=== PATIENT | male | born 1960 | race Caucasian/White ===

== ENCOUNTER 2016-10-27 | Emergency (ER) | payer MEDICAID ==
[~2016-10-27] MED LIST: Apixaban Base PO; FURO20TA PO; LIS5T PO
[2016-10-27 01:03] LABS: Albumin 3.5 g/dL (3.4-5.0); BUN/Creatinine Ratio 14.6; Calcium 9.2 mg/dL (8.5-10.1); Magnesium 2.2 mg/dL (1.6-2.6); Potassium 4.3 mmol/L (3.5-5.1)
[2016-10-27 01:10] LABS: Bilirubin, Total 1.7 mg/dL (0.2-1.0); Total Protein 7.2 g/dL (6.4-8.2)
[2016-10-27 01:26] LABS: Basophils # (auto) 0 uL; Basophils % (auto) 0.3 % (0.0-2.0); Eosinophils # (auto) 0.2 uL; Eosinophils % (auto) 1.4 % (0.0-7.0); Hematocrit 44.5 % (41.0-53.0); Hemoglobin 14.7 g/dL (13.5-17.5); Lymphocytes # (auto) 1.9 uL; Lymphocytes % (auto) 18.2 % (10.0-50.0); Mean Corpuscular Hemoglobin 31.4 pg (28.0-32.0); Mean Corpuscular Hgb Conc. 33.1 g/dL (32.0-36.0); Mean Corpuscular Volume 94.7 fL (80.0-100.0); Mean Platelet Volume 9.7 fL (7.4-10.4); Monocytes % (auto) 9.5 % (0.0-12.0); Neutrophils # (auto) 7.4 uL; Neutrophils % (auto) 70.6 % (37.0-80.0); Platelet Count (auto) 260 10^3/uL (140-450); Red Cell Distribution Width 13.6 % (11.6-16.0); White Blood Cell 10.5 10^3/uL (4.4-10.8)
== END 2016-10-27 08:46 | disposition left against medical advice (07) ==
LOC: ER
DX: R10.9 Unspecified abdominal pain (principal); Z53.21 Procedure and treatment not carried out due to patient leaving prior to being seen by health care provider
CPT/HCPCS: 36415; 74176; 80053; 82150; 83690; 83735; 84484; 85025; 93005

== ENCOUNTER 2016-10-28 16:55 | Emergency (ER) | payer MEDICAID ==
[~2016-10-28] VITALS: Ht 175.3 cm; Wt 70.3 kg
[2016-10-28 17:15] VITALS: BP 123/89
[2016-10-28 17:46] LABS: Basophils # (auto) 0.1 uL; Basophils % (auto) 0.9 % (0.0-2.0); Eosinophils # (auto) 0.2 uL; Eosinophils % (auto) 2.5 % (0.0-7.0); Hematocrit 43.3 % (41.0-53.0); Hemoglobin 14.6 g/dL (13.5-17.5); Lymphocytes # (auto) 1.7 uL; Lymphocytes % (auto) 17.4 % (10.0-50.0); Mean Corpuscular Hemoglobin 31.8 pg (28.0-32.0); Mean Corpuscular Hgb Conc. 33.8 g/dL (32.0-36.0); Mean Platelet Volume 9.3 fL (7.4-10.4); Monocytes # (auto) 0.8 uL; Monocytes % (auto) 8.6 % (0.0-12.0); Neutrophils # (auto) 6.8 uL; Neutrophils % (auto) 70.6 % (37.0-80.0); Platelet Count (auto) 277 10^3/uL (140-450); Red Cell Distribution Width 13.9 % (11.6-16.0); White Blood Cell 9.6 10^3/uL (4.4-10.8)
[2016-10-28 18:02] LABS: Albumin 3.2 g/dL (3.4-5.0); BUN/Creatinine Ratio 14.8; Calcium 8.7 mg/dL (8.5-10.1)
[2016-10-28 18:19] LABS: Bilirubin, Total 1.5 mg/dL (0.2-1.0); Total Protein 7.2 g/dL (6.4-8.2)
[2016-10-28 18:30] LABS: B-Type Natriuretic Peptide 1314.29 pg/mL (0-100); Temperature: 23.9 C (20.0-25.0)
== END 2016-10-28 22:14 | disposition left against medical advice (07) ==
LOC: ER 17:09
DX: R53.1 Weakness (principal); R10.9 Unspecified abdominal pain; Z53.21 Procedure and treatment not carried out due to patient leaving prior to being seen by health care provider
CPT/HCPCS: 36415; 80053; 83880; 84484; 85025; 93005

== ENCOUNTER 2020-01-07 22:18 | Emergency (ER) | payer MEDICAID ==
[~2020-01-07] VITALS: Ht 175.3 cm; Wt 74.8 kg
[~2020-01-07 22:18] MED LIST changes: +FURO1TAB33 PO; -FURO20TA PO
[2020-01-07 22:33] VITALS: BP 107/70
[2020-01-07 23:08] LABS: Urine Bacteria NONE SEEN /hpf (None Seen); Urine Blood Negative /uL (Negative); Urine Hyaline Cast MANY /lpf (0 - 2); Urine Specific Gravity 1.009 (1.001-1.035); Urine WBC <1 /hpf (0 - 3)
[2020-01-07 23:09] LABS: Basophils # (auto) 0 10 ^3/uL (0-0.2); Basophils % (auto) 0.3 % (0.0-2.0); Eosinophils # (auto) 0 10 ^3/uL (0-0.8); Eosinophils % (auto) 0.2 % (0.0-7.0); Hematocrit 45.8 % (41.0-53.0); Hemoglobin 14.6 g/dL (13.5-17.5); Lymphocytes # (auto) 0.4 10 ^3/uL (0.4-5.4); Lymphocytes % (auto) 5.3 % (10.0-50.0); Mean Corpuscular Hgb Conc. 31.8 g/dL (32.0-36.0); Mean Corpuscular Volume 91.1 fL (80.0-100.0); Monocytes # (auto) 0.3 10 ^3/uL (0-1.3); Monocytes % (auto) 4.3 % (0.0-12.0); Neutrophils # (auto) 6.9 10 ^3/uL (1.6-8.6); Neutrophils % (auto) 89.9 % (37.0-80.0); Platelet Count (auto) 236 10^3/uL (140-450); Red Blood Cells 5.02 10^6/uL (4.5-5.90); Red Cell Distribution Width 17.3 % (11.8-14.3); White Blood Cell 7.7 10^3/uL (4.4-10.8)
[2020-01-07 23:25] LABS: INR 1.36 (0.9-1.15); Partial Thromboplastin Time 26.8 sec (23.0-31.2)
[2020-01-07 23:29] LABS: Albumin 2.8 g/dL (3.4-5.0); BUN/Creatinine Ratio 27.3; Calcium 8.5 mg/dL (8.5-10.1); Magnesium 2.6 mg/dL (1.6-2.6)
[2020-01-07 23:40] LABS: Bilirubin, Total 3.1 mg/dL (0.2-1.0); Total Protein 6.9 g/dL (6.4-8.2)
== END 2020-01-08 02:15 | disposition left against medical advice (07) ==
LOC: ER 22:19
DX: R60.0 Localized edema (principal); Z53.21 Procedure and treatment not carried out due to patient leaving prior to being seen by health care provider
CPT/HCPCS: 36415; 71045; 80053; 81001; 83735; 83880; 84484; 85025; 85610; 85730; 93005

== ENCOUNTER 2020-02-03 19:33 | Inpatient (IN) | payer MEDICAID ==
[~2020-02-03] VITALS: Ht 175.3 cm; Wt 78.5 kg
[2020-02-03 20:53] LABS: Basophils # (auto) 0.1 10 ^3/uL (0-0.2); Basophils % (auto) 1.2 % (0.0-2.0); Eosinophils # (auto) 0.1 10 ^3/uL (0-0.8); Eosinophils % (auto) 1.6 % (0.0-7.0); Hematocrit 45.9 % (41.0-53.0); Lymphocytes # (auto) 0.7 10 ^3/uL (0.4-5.4); Lymphocytes % (auto) 8.1 % (10.0-50.0); Mean Corpuscular Hemoglobin 29.4 pg (28.0-32.0); Mean Corpuscular Hgb Conc. 32.6 g/dL (32.0-36.0); Monocytes # (auto) 0.9 10 ^3/uL (0-1.3); Monocytes % (auto) 11.2 % (0.0-12.0); Neutrophils # (auto) 6.4 10 ^3/uL (1.6-8.6); Neutrophils % (auto) 77.9 % (37.0-80.0); Nucleated Red Blood Cells % 0.2 %; Platelet Count (auto) 283 10^3/uL (140-450); Red Blood Cells 5.11 10^6/uL (4.5-5.90); Red Cell Distribution Width 18.5 % (11.8-14.3); White Blood Cell 8.2 10^3/uL (4.4-10.8)
[2020-02-03 21:03] LABS: INR 1.38 (0.9-1.15); Partial Thromboplastin Time 28.2 sec (23.0-31.2)
[2020-02-03 21:09] LABS: Albumin 2.5 g/dL (3.4-5.0); Calcium 8.1 mg/dL (8.5-10.1); Magnesium 2.3 mg/dL (1.6-2.6); Potassium 4.2 mmol/L (3.5-5.1)
[2020-02-03 21:16] LABS: BUN/Creatinine Ratio 22.3; Bilirubin, Total 3.5 mg/dL (0.2-1.0); Total Protein 6.6 g/dL (6.4-8.2)
[2020-02-03] MEDS ORDERED: FUROSEMIDE 40 MG/4 ML VIAL IV ONE (22:00)
[2020-02-03 23:48] LABS: Urine Bacteria NONE SEEN /hpf (None Seen); Urine Blood Negative /uL (Negative); Urine Hyaline Cast MOD /lpf (0 - 2); Urine Mucus FEW (None Seen); Urine Specific Gravity 1.021 (1.001-1.035); Urine WBC <1 /hpf (0 - 3)
[2020-02-04] MEDS ORDERED: ONDANSETRON HCL 4 MG/2 ML VIAL IV PRN (02:15)
[2020-02-04] MEDS ORDERED: ACETAMINOPHEN 325 MG TAB PO PRN (02:15)
[2020-02-04] MEDS ORDERED: MORPHINE SULF INJ 2 MG/ML SYRINGE 1ML IV PRN (02:15)
[2020-02-04] MEDS ORDERED: NITROGLYCERIN 0.4 MG SL TAB SL PRN (02:15)
[2020-02-04 05:30] VITALS: BP 113/76
--- NOTE | 2020-02-04 05:35 | NUR ---
Telemetry admit from ER Patient admitted to Telemetry unit and oriented to primary RN, unit, room, bed, and unit policies regarding patient care and visiting hours. Patient now on continuous telemetry monitoring, tele box #64 and telemetry reading on arrival to unit is sinus rhythm at 96. Bed is in lowest position and locked. Call light within reach. Board updated. Patient placed on bedside oxygen at 3 l/min, weighed by bedscale and encouraged to call if they need something. All questions and concerns addressed, patient verbalized understanding.
[2020-02-04 05:45] VITALS: BP 113/76
[2020-02-04] MEDS: HYDROcodone-ACET 5/325MG TAB PO PRN ×2 (06:09→19:35)
[2020-02-04] MEDS ORDERED: ASPI-498 OR (06:58)
[2020-02-04] MEDS ORDERED: BENA5TAB5 PO (06:58)
[2020-02-04] MEDS ORDERED: PRAV20TA3 PO (06:58)
[2020-02-04] MEDS ORDERED: HYDR-392 PO (06:58)
[2020-02-04] MEDS ORDERED: FURO40TA4 PO (06:58)
[2020-02-04] MEDS ORDERED: POTA10TA51 PO (06:58)
--- NOTE | 2020-02-04 07:30 | NUR ---
Opening Shift Note Assumed care of patient, awake and alert. No S/S of distress/SOB or pain. Instructed on POC and to callfor assist PRN, will continue to monitor for changes Q1hr and PRN.
[2020-02-04 07:50] LABS: Basophils # (auto) 0.1 10 ^3/uL (0-0.2); Basophils % (auto) 0.7 % (0.0-2.0); Eosinophils # (auto) 0.2 10 ^3/uL (0-0.8); Eosinophils % (auto) 2.1 % (0.0-7.0); Hematocrit 46.3 % (41.0-53.0); Hemoglobin 15.4 g/dL (13.5-17.5); Lymphocytes # (auto) 0.7 10 ^3/uL (0.4-5.4); Lymphocytes % (auto) 8.2 % (10.0-50.0); Mean Corpuscular Hemoglobin 29.9 pg (28.0-32.0); Mean Corpuscular Hgb Conc. 33.2 g/dL (32.0-36.0); Monocytes # (auto) 0.9 10 ^3/uL (0-1.3); Monocytes % (auto) 10.4 % (0.0-12.0); Neutrophils # (auto) 6.9 10 ^3/uL (1.6-8.6); Neutrophils % (auto) 78.6 % (37.0-80.0); Nucleated Red Blood Cells % 0.1 %; Platelet Count (auto) 273 10^3/uL (140-450); Red Blood Cells 5.14 10^6/uL (4.5-5.90); White Blood Cell 8.8 10^3/uL (4.4-10.8)
[2020-02-04 08:06] LABS: Albumin 2.6 g/dL (3.4-5.0); Calcium 8.4 mg/dL (8.5-10.1); Magnesium 2.4 mg/dL (1.6-2.6); Potassium 3.8 mmol/L (3.5-5.1)
[2020-02-04 08:08] LABS: BUN/Creatinine Ratio 20.9; Bilirubin, Total 4.1 mg/dL (0.2-1.0); Phosphorus 3.2 mg/dL (2.5-4.90); Total Protein 6.7 g/dL (6.4-8.2)
[2020-02-04 09:00] VITALS: BP 115/81
[2020-02-04] MEDS ORDERED: SPIRONOLACTONE 25 MG TAB PO SCH (10:00)
[2020-02-04] MEDS: FUROSEMIDE 40 MG/4 ML VIAL IV SCH ×2 (10:19→18:38)
[2020-02-04 12:46] VITALS: BP 115/82
--- NOTE | 2020-02-04 16:00 | NUR ---
PER PT, HE WAS TESTED NEGATIVE FOR COVID AT [facility]
[2020-02-04 16:40] VITALS: BP 116/85
--- NOTE | 2020-02-04 18:00 | NUR ---
PT MADE AWARE THAT HE WILL HAVE AN ABD/PELVIS CT TOMORROW MORNING AND HIS BREAKFAST WILL BE HELD FOR THE PROCEDURE. HE'S ALSO AWARE THAT HE CAN EAT AFTER THE PROCEDURE. VERBALIZED UNDERSTANDING.
--- NOTE | 2020-02-04 19:41 | NUR ---
CLOSING NOTES Patient awake and alert. No S/S of distress/SOB or pain. REPORT GIVEN TO AUDRA QUINN.
--- NOTE | 2020-02-04 19:45 | NUR ---
Opening Shift Note Received report from Mary Alice ZHU. Assumed care of patient, awake and alert. No S/S of distress/SOB or pain. Instructed on POC and to call for assist PRN, will continue to monitor for changes Q1hr and PRN.
[2020-02-04 21:45] VITALS: BP 134/82
[2020-02-04] MEDS: SPIRONOLACTONE 25 MG TAB PO SCH (22:05)
--- NOTE | 2020-02-04 22:20 | NUR ---
IV removal Iv site leaking. IV DC'd with clean sterile technique, catheter fully intact. Pressure dressing applied to site. Patient tolerated well.
--- NOTE | 2020-02-04 22:30 | NUR ---
IV insertion IV access obtained, via clean sterile technique by inserting 20 gauge catheter at right forearm after 2 attempt(s). IV secured properly. No trauma to site. Patient tolerated well.
[2020-02-05] MEDS: HYDROcodone-ACET 5/325MG TAB PO PRN ×4 (03:01→18:48)
[2020-02-05 04:55] VITALS: BP 121/81
[2020-02-05] MEDS: FUROSEMIDE 40 MG/4 ML VIAL IV SCH ×2 (05:54→17:56)
--- NOTE | 2020-02-05 07:00 | NUR ---
OPENING SHIFT NOTE RECEIVED REPORT ON THE PATIENT. SLEEPING LYING IN BED. PATIENT SHOWS NO SIGNS OF DISTRESS AT THIS TIME. DISCUSSED THE PLAN OF CARE WITH THE PATIENT. BED IN THE LOWEST POSITION, SIDE RAILS UP X2, AND THE CALL LIGHT IS WITHIN REACH.
[2020-02-05 07:02] LABS: Calcium 8.5 mg/dL (8.5-10.1); Potassium 4.2 mmol/L (3.5-5.1)
[2020-02-05 08:36] VITALS: BP 124/81
[2020-02-05] MEDS: SPIRONOLACTONE 25 MG TAB PO SCH ×2 (09:49→21:53)
[2020-02-05] MEDS: PANTOPRAZOLE 40 MG TAB PO SCH (09:49)
[2020-02-05] MEDS ORDERED: OMNIPAQUE ORAL SOLN 500ml 12mg/ml PO ONE (10:12)
[2020-02-05] MEDS ORDERED: CARVEDILOL 3.125 MG TAB PO ONE (10:30)
[2020-02-05] MEDS ORDERED: IOHEXOL 300 MG/ML 100ML BOTTLE IJ ONE (12:45)
[2020-02-05 13:00] VITALS: BP 121/76
--- NOTE | 2020-02-05 14:52 | NUR ---
DR SAAB AT BEDSIDE. NEW ORDERS RECEIVED.
[2020-02-05 17:00] VITALS: BP 111/75
--- NOTE | 2020-02-05 18:04 | NUR ---
PAGED DR SAAB WITH RESULTS FOR CT ABD/PEL. LEFT MESSAGE. AWAITING A CALL BACK.
[2020-02-05] MEDS: ALBUMIN 25% 50 ML IV SCH (18:48)
--- NOTE | 2020-02-05 19:07 | NUR ---
ENDORSED CARE TO KVNG RN. PATIENT SHOWS NO SIGNS OF DISTRESS AT THIS TIME.
--- NOTE | 2020-02-05 19:20 | NUR ---
Opening Shift Note Received report from Sushila ZHU. Assumed care of patient, awake and alert. No S/S of distress/SOB or pain. Instructed on POC and to call for assist PRN, will continue to monitor for changes Q1hr and PRN.
[2020-02-05] MEDS: CARVEDILOL 3.125 MG TAB PO SCH (21:54)
[2020-02-05 22:00] VITALS: BP 126/81
--- NOTE | 2020-02-05 22:13 | NUR ---
Call to Dr. Neumann exchange and left message re: patient having panic attack, requesting for medication. Awaiting for call back.
--- NOTE | 2020-02-05 22:24 | NUR ---
Received a call back from Dr. Monae with order for Xanax 0.5mg PO x1, will carry out order.
[2020-02-05] MEDS ORDERED: ALPRAZolam 0.5 MG TAB PO ONE (22:30)
[2020-02-06] MEDS: ALBUMIN 25% 50 ML IV SCH ×2 (02:33→10:16)
[2020-02-06] MEDS: HYDROcodone-ACET 5/325MG TAB PO PRN ×2 (02:40→17:18)
[2020-02-06 05:00] VITALS: BP 106/68
[2020-02-06] MEDS: FUROSEMIDE 40 MG/4 ML VIAL IV SCH ×2 (06:00→17:30)
[2020-02-06 07:10] LABS: INR 1.29 (0.9-1.15); Partial Thromboplastin Time 27.8 sec (23.0-31.2)
[2020-02-06 09:00] VITALS: BP 102/82
[2020-02-06] MEDS: PANTOPRAZOLE 40 MG TAB PO SCH (10:16)
[2020-02-06] MEDS: CARVEDILOL 3.125 MG TAB PO SCH (10:16)
[2020-02-06] MEDS: SPIRONOLACTONE 25 MG TAB PO SCH (10:16)
--- NOTE | 2020-02-06 11:19 | NUR ---
PARACENTESIS DONE IN ULTRASOUND BY DR GILES. PT VS 110/82-91-20-91%.PT TOLERATED WELL. 2600 ML OF ASCITES FLUID REMOVED AND SENT TO LAB/ PATHOLOGY
[2020-02-06 13:04] VITALS: BP 104/69
[2020-02-06] MEDS ORDERED: FURO40TA4 PO (14:26)
[2020-02-06] MEDS ORDERED: POTA10TA51 PO (14:26)
[2020-02-06] MEDS ORDERED: CAR3125T PO (14:26)
[2020-02-06 15:18] VITALS: BP 104/69
[2020-02-06 17:00] VITALS: BP 123/71
--- NOTE | 2020-02-06 18:05 | NUR ---
Discharge instructions given as ordered. Encourage to follow up with PMD (Follow up with civil clerk in 1-2 weeks. Follow up with PCP Renata Black in Feb 08 at 9.00 AM#[phone] Address : [address], [address] , [place], [address]) as instructed. All questions and concerns addressed. Patient verbalized understanding. Medication reconciliation form completed and copy given to patient. IV removed with catheter intact, pressure dressing applied. Telemetry unit returned to ICU. Patient taken to vehicle via wheelchair with all personal belongings, accompanied by staff and family member. No distress noted at time of departure.
== END 2020-02-06 18:08 | disposition home or self-care (01) ==
LOC: ER 19:33 → TELE-WESTW 19:34
PROVIDERS: ADMIT Internal Medicine; ATTEND Internal Medicine
PROC: 0W9G3ZZ Drainage of Peritoneal Cavity, Percutaneous Approach (ICD-10-PCS; principal; 2020-02-06)
DX: K74.60 Unspecified cirrhosis of liver (principal); R18.8 Other ascites; I11.0 Hypertensive heart disease with heart failure; I25.10 Atherosclerotic heart disease of native coronary artery without angina pectoris; I42.0 Dilated cardiomyopathy; I50.43 Acute on chronic combined systolic (congestive) and diastolic (congestive) heart failure; E44.1 Mild protein-calorie malnutrition; J44.9 Chronic obstructive pulmonary disease, unspecified; Z82.49 Family history of ischemic heart disease and other diseases of the circulatory system; Z95.810 Presence of automatic (implantable) cardiac defibrillator; Z82.5 Family history of asthma and other chronic lower respiratory diseases; Z68.28 Body mass index [BMI] 28.0-28.9, adult
CPT/HCPCS: 36415; 71045; 74177; 76705; 76942; 80048; 80053; 80320; 81001; 82140; 83605; 83735; 83880; 83986; 84100; 84484; 85025; 85610; 85730; 87081; 87205; 89051; 93005; 93306; G0378

== ENCOUNTER 2020-02-18 02:50 | Inpatient (IN) | payer MEDICAID ==
[~2020-02-18] VITALS: Ht 175.3 cm; Wt 84.0 kg
[~2020-02-18 02:50] MED LIST changes: +BENA5TAB5 PO; +CAR3125T PO; -FURO1TAB33 PO; +FURO40TA4 PO; +HYDR-392 PO; -LIS5T PO; +POTA10TA51 PO; +PRAV20TA3 PO
[2020-02-18 03:49] LABS: Basophils # (auto) 0 10 ^3/uL (0-0.2); Basophils % (auto) 0.4 % (0.0-2.0); Eosinophils # (auto) 0 10 ^3/uL (0-0.8); Eosinophils % (auto) 0.4 % (0.0-7.0); Hematocrit 46.3 % (41.0-53.0); Hemoglobin 15.3 g/dL (13.5-17.5); Lymphocytes # (auto) 0.6 10 ^3/uL (0.4-5.4); Lymphocytes % (auto) 6.5 % (10.0-50.0); Mean Corpuscular Hemoglobin 29.7 pg (28.0-32.0); Mean Corpuscular Hgb Conc. 33.1 g/dL (32.0-36.0); Mean Corpuscular Volume 89.8 fL (80.0-100.0); Monocytes # (auto) 0.9 10 ^3/uL (0-1.3); Monocytes % (auto) 9.5 % (0.0-12.0); Neutrophils # (auto) 8.1 10 ^3/uL (1.6-8.6); Neutrophils % (auto) 83.2 % (37.0-80.0); Platelet Count (auto) 205 10^3/uL (140-450); Red Blood Cells 5.16 10^6/uL (4.5-5.90); White Blood Cell 9.7 10^3/uL (4.4-10.8)
[2020-02-18 03:59] LABS: Red Cell Distribution Width 19.5 % (11.8-14.3)
[2020-02-18 04:01] LABS: INR 1.36 (0.9-1.15); Partial Thromboplastin Time 28.9 sec (23.0-31.2)
[2020-02-18 04:07] LABS: Albumin 2.9 g/dL (3.4-5.0); Calcium 8.9 mg/dL (8.5-10.1); Potassium 4.5 mmol/L (3.5-5.1)
[2020-02-18 04:13] LABS: Bilirubin, Total 4.9 mg/dL (0.2-1.0); Total Protein 7.4 g/dL (6.4-8.2)
[2020-02-18] MEDS ORDERED: ALBUMIN 25% 100 ML IV ONE (04:45)
[2020-02-18] MEDS ORDERED: FUROSEMIDE 40 MG/4 ML VIAL IV ONE ×2 (04:45→12:00)
[2020-02-18 08:14] LABS: Urine Bacteria NONE SEEN /hpf (None Seen); Urine Blood Negative /uL (Negative); Urine Specific Gravity 1.009 (1.001-1.035); Urine WBC 1 /hpf (0 - 3)
[2020-02-18] MEDS ORDERED: NITROGLYCERIN 0.4 MG SL TAB SL PRN (12:00)
[2020-02-18] MEDS ORDERED: ONDANSETRON HCL 4 MG/2 ML VIAL IV PRN (12:00)
[2020-02-18] MEDS ORDERED: MORPHINE SULF INJ 2 MG/ML SYRINGE 1ML IV PRN (12:00)
--- NOTE | 2020-02-18 14:27 | NUR ---
Telemetry admit from ER: MIGUEL SALGADO admitted to Telemetry unit after SBAR received. Patient oriented to JENNA JOE, RN primary RN, unit, room, bed, and unit policies regarding patient care and visiting hours. Patient now on continuous telemetry monitoring, tele box # 52 and telemetry reading on arrival to unit is NSR. Patient placed on bedside oxygen 2 LPM, weighed by bedscale and encouraged to call if they need something. All questions and concerns addressed, patient verbalized understanding.
[2020-02-18 14:53] VITALS: BP 122/77
[2020-02-18] MEDS ORDERED: FURO40TA4 PO (15:19)
[2020-02-18] MEDS ORDERED: HYDR-392 PO (15:19)
[2020-02-18] MEDS ORDERED: POTA10TA51 PO (15:19)
[2020-02-18] MEDS ORDERED: ASPI-543 PO (15:19)
[2020-02-18] MEDS: HYDROcodone-ACET 5/325MG TAB PO PRN ×2 (15:44→21:24)
--- NOTE | 2020-02-18 17:47 | NUR ---
MRSA swab collected and sent to lab
--- NOTE | 2020-02-18 18:50 | NUR ---
CLOSING NOTE: Patient resting in bed. No S/S of distress at this time. Care endorsed.
[2020-02-18] MEDS ORDERED: POTASSIUM CHL 20 Meq TABLET PO ONE (20:45)
[2020-02-18] MEDS: PRAVASTATIN SODIUM 20 MG TAB PO SCH (21:24)
[2020-02-18 22:00] VITALS: BP 112/65
[2020-02-19 05:00] VITALS: BP 120/81
[2020-02-19 05:26] LABS: Albumin 2.6 g/dL (3.4-5.0); BUN/Creatinine Ratio 26.9; Calcium 8.3 mg/dL (8.5-10.1); Potassium 4.1 mmol/L (3.5-5.1)
[2020-02-19 05:29] LABS: Bilirubin, Total 3.9 mg/dL (0.2-1.0); Total Protein 6.5 g/dL (6.4-8.2)
--- NOTE | 2020-02-19 07:30 | NUR ---
Opening Shift Note: Assumed care of patient, awake and alert. No S/S of distress/SOB. Patient states pain in abdomen, 11/15. Bed in lowest locked position, side rails up x 2, call light within reach. Patient instructed on POC and to call for assist PRN, will continue to monitor for changes Q1hr and PRN.
[2020-02-19 08:00] VITALS: BP 116/75
[2020-02-19] MEDS: HYDROcodone-ACET 5/325MG TAB PO PRN ×2 (08:40→18:26)
--- NOTE | 2020-02-19 09:05 | NUR ---
TELE Per groundwater monitoring technician, patient had run of [place]. Patient assessed. Per patient "I am fine, just in a little pain." requested strip. EKG performed, SR. Called Dr. Jaren Johnson exchange, message left. Addendum: 02/19/20 at 1655 by JENNA JOE RN RN ABDOMINAL PAIN
[2020-02-19] MEDS: FUROSEMIDE 100 MG/10ML VIAL IV SCH (09:40)
[2020-02-19] MEDS: SPIRONOLACTONE 25 MG TAB PO SCH (09:41)
[2020-02-19] MEDS: POTASSIUM CHL 20 Meq TABLET PO SCH (09:41)
[2020-02-19] MEDS: CARVEDILOL 3.125 MG TAB PO SCH (09:42)
[2020-02-19] MEDS: BENAZEPRIL HCL 10 MG TAB PO SCH (09:42)
[2020-02-19] MEDS ORDERED: PHYTONADIONE(VitK) ORAL Susp 10mg/10ml(1mg/ml) PO ONE (12:15)
[2020-02-19 13:00] VITALS: BP 121/72
[2020-02-19 17:00] VITALS: BP 108/79
--- NOTE | 2020-02-19 18:45 | NUR ---
CLOSING NOTE: Patient resting in bed. No S/S of distress. Care endorsed.
[2020-02-19] MEDS: MORPHINE SULF INJ 2 MG/ML SYRINGE 1ML IV PRN ×2 (20:33→21:44)
[2020-02-19 21:28] VITALS: BP 107/54
[2020-02-19] MEDS: PRAVASTATIN SODIUM 20 MG TAB PO SCH (21:44)
[2020-02-20] MEDS: HYDROcodone-ACET 5/325MG TAB PO PRN (02:13)
[2020-02-20 04:40] VITALS: BP 106/75
--- NOTE | 2020-02-20 08:00 | NUR ---
Opening Shift Note Assumed care of patient, patient sleeping quietly at this time. No S/S of distress/SOB or pain. Will return for morning assessment.
[2020-02-20 09:00] VITALS: BP 90/70
--- NOTE | 2020-02-20 09:21 | NUR ---
PATIENT OFF UNIT FOR PROCEDURE. NO DISTRESS NOTED.
--- NOTE | 2020-02-20 09:40 | NUR ---
PT IN ULTRASOUND FOR A PARACENTESIS WITH GOLD BUSH. 106/78-66-17-94%. 0955:100/71-77-16-95%. 1008: FINISHED WITH PROCEDURE. PT TOLERATED WELL. 4150 ML OF FLUID REMOVED.
--- NOTE | 2020-02-20 11:10 | NUR ---
PATIENT RETURNED TO ROOM Patient returned to room by radiology from paracentesis procedure.
[2020-02-20] MEDS: POTASSIUM CHL 20 Meq TABLET PO SCH (11:15)
[2020-02-20] MEDS: SPIRONOLACTONE 25 MG TAB PO SCH (11:15)
[2020-02-20] MEDS: BENAZEPRIL HCL 10 MG TAB PO SCH (11:20)
[2020-02-20] MEDS: CARVEDILOL 3.125 MG TAB PO SCH (11:21)
[2020-02-20] MEDS: FUROSEMIDE 100 MG/10ML VIAL IV SCH (11:21)
--- NOTE | 2020-02-20 12:48 | NUR ---
DR TELLES NOTIFIED OF OCCASIONAL RUNS OF VTACH. NO NEW ORDERS AT THIS TIME.
[2020-02-20 13:00] VITALS: BP 126/75
[2020-02-20] MEDS ORDERED: SPIR25TA88 PO (13:08)
[2020-02-20] MEDS ORDERED: CAR3125T PO (13:08)
[2020-02-20] MEDS ORDERED: FURO40TA4 PO (13:08)
--- NOTE | 2020-02-20 13:21 | NUR ---
CALLED AND LEFT MESSAGE FOR [employer]ISE INTEGRATOR REGARDING SOCIAL SERVICE CONSULT. AWAITING CALL BACK
--- NOTE | 2020-02-20 13:35 | NUR ---
PER MD Jaren WASHBURN REQUEST DR. WOODSON PAGED REGARDING PENDING DC. AWAITING CALL BACK.
--- NOTE | 2020-02-20 13:41 | NUR ---
SPOKE WITH DR ESCOBEDO. PER MD "PATIENT IS CLEARED FOR DISCHARGE."
--- NOTE | 2020-02-20 15:00 | NUR ---
Assessment Patient is a 59-year old male who is alert and oriented. Prior to admission patient rented a room with friends and functioned independently. Per patient he can care for his own ADL's. Patient has a walker and cane for home use. Per patient he will return home to his prior living arrangements post discharge and a friend will transport him home. Advised patient there is a social service consult for home health safety evaluation. Informed patient he has a right to participate in all discharge planning. Patient verbalized understanding and agreed to discharge plan. Faxed clinical information to [facility] and [facility]. Per Danielle with [facility] patient has been accepted and service to start within 24-48hrs upon d/c day. Bedside nurse was informed. Addendum: 02/21/20 at 0857 by LINDSAY QUIÑONES Amended: Links added.
--- NOTE | 2020-02-20 15:06 | NUR ---
SPOKE WITH DR. WOODSON. PER MD "PATIENT IS CLEARED FOR DISCHARGE."
[2020-02-20 15:25] LABS: Hepatitis B Surface Antibody Negative
[2020-02-20 15:37] VITALS: BP 126/75
[2020-02-20 15:59] LABS: Hepatitis A Total Antibody Negative
--- NOTE | 2020-02-20 16:50 | NUR ---
Discharge instructions given as ordered. Encourage to follow up with PMD as instructed. All questions and concerns addressed. Patient verbalized understanding. Patient states family is to bring home oxygen for ride home. Medication reconciliation form completed and copy given to patient. IV removed with catheter intact, pressure dressing applied. Telemetry unit returned to ICU. Patient taken to vehicle via wheelchair with all personal belongings, accompanied by staff. No distress noted at time of departure.
[2020-02-20 17:00] VITALS: BP 141/70
[2020-02-20 17:10] LABS: Hepatitis B Surface Antigen Negative (Negative)
[2020-02-20 17:11] LABS: Hepatitis B Core Total AB Negative
[2020-02-20 17:13] LABS: Hepatitis C Antibody Negative (Negative)
--- NOTE | 2020-02-21 09:24 | NUR ---
Received a follow up called from Renetta with [facility] advising me patient is on service with [facility] and order will be redirected to agency. Faxed order to [employer] and confirm with Arabella with agency.
--- NOTE | 2020-02-21 09:25 | NUR ---
Obtain auth from [facility] for Jose Miguel Mckinley [id number]
== END 2020-02-20 16:50 | disposition home health service (06) ==
LOC: ER 02:50 → TELE 02:51 → TELE-WESTW 14:30
PROVIDERS: ADMIT Internal Medicine; ATTEND Internal Medicine
PROC: 0W9G3ZX Drainage of Peritoneal Cavity, Percutaneous Approach, Diagnostic (ICD-10-PCS; principal; 2020-02-20)
DX: K74.60 Unspecified cirrhosis of liver (principal); I11.0 Hypertensive heart disease with heart failure; I50.23 Acute on chronic systolic (congestive) heart failure; K42.9 Umbilical hernia without obstruction or gangrene; E78.5 Hyperlipidemia, unspecified; F19.20 Other psychoactive substance dependence, uncomplicated; I42.0 Dilated cardiomyopathy; F15.90 Other stimulant use, unspecified, uncomplicated; J44.9 Chronic obstructive pulmonary disease, unspecified; Z20.828 Contact with and (suspected) exposure to other viral communicable diseases; Z95.810 Presence of automatic (implantable) cardiac defibrillator; Z86.711 Personal history of pulmonary embolism; Z79.899 Other long term (current) drug therapy; Z79.82 Long term (current) use of aspirin; Z79.01 Long term (current) use of anticoagulants; Z88.5 Allergy status to narcotic agent; Z80.9 Family history of malignant neoplasm, unspecified; Z82.49 Family history of ischemic heart disease and other diseases of the circulatory system; Z83.6 Family history of other diseases of the respiratory system; I24.8 Other forms of acute ischemic heart disease
CPT/HCPCS: 10022; 36415; 36600; 71250; 74176; 76700; 76942; 80053; 81001; 82140; 82805; 83605; 83880; 84484; 85025; 85610; 85730; 86704; 86706; 86708; 86803; 87040; 87081; 87340; 87426; 93005; G0378; P9047

== ENCOUNTER 2020-03-08 22:14 | Emergency (ER) | payer MEDICAID ==
[~2020-03-08] VITALS: Ht 175.3 cm; Wt 77.1 kg
[~2020-03-08 22:14] MED LIST changes: +ASPI-543 PO; -Apixaban Base PO; +SPIR25TA88 PO
[2020-03-08 23:05] LABS: Basophils # (auto) 0.1 10 ^3/uL (0-0.2); Basophils % (auto) 1.2 % (0.0-2.0); Eosinophils # (auto) 0.1 10 ^3/uL (0-0.8); Eosinophils % (auto) 1.6 % (0.0-7.0); Hematocrit 43.8 % (41.0-53.0); Hemoglobin 14.4 g/dL (13.5-17.5); Lymphocytes # (auto) 0.6 10 ^3/uL (0.4-5.4); Lymphocytes % (auto) 8.2 % (10.0-50.0); Mean Corpuscular Hemoglobin 29.6 pg (28.0-32.0); Mean Corpuscular Hgb Conc. 32.8 g/dL (32.0-36.0); Mean Corpuscular Volume 90.3 fL (80.0-100.0); Monocytes # (auto) 0.7 10 ^3/uL (0-1.3); Monocytes % (auto) 9.4 % (0.0-12.0); Neutrophils # (auto) 5.9 10 ^3/uL (1.6-8.6); Neutrophils % (auto) 79.6 % (37.0-80.0); Nucleated Red Blood Cells % 0.1 %; Platelet Count (auto) 281 10^3/uL (140-450); Red Blood Cells 4.85 10^6/uL (4.5-5.90); White Blood Cell 7.4 10^3/uL (4.4-10.8)
[2020-03-08 23:18] LABS: INR 1.15 (0.9-1.15); Partial Thromboplastin Time 27.3 sec (23.0-31.2)
[2020-03-08 23:19] LABS: Albumin 2.5 g/dL (3.4-5.0); BUN/Creatinine Ratio 18.8; Potassium 3.3 mmol/L (3.5-5.1)
[2020-03-08 23:23] LABS: Bilirubin, Total 3.4 mg/dL (0.2-1.0)
[2020-03-08 23:43] LABS: Red Cell Distribution Width 20.9 % (11.8-14.3)
[2020-03-09] MEDS ORDERED: ONDANSETRON HCL 4 MG/2 ML VIAL IV ONE (03:30)
[2020-03-09] MEDS ORDERED: MORPHINE SULFATE 4 MG/ML SYR/VIAL IV ONE (03:30)
[2020-03-09 08:57] LABS: Urine Bacteria NONE SEEN /hpf (None Seen); Urine Blood Negative /uL (Negative); Urine Hyaline Cast FEW /lpf (0 - 2); Urine Mucus FEW (None Seen); Urine Specific Gravity 1.011 (1.001-1.035); Urine WBC None Seen /hpf (0 - 3)
[2020-03-09 09:18] VITALS: BP 117/63
== END 2020-03-09 11:24 | disposition left against medical advice (07) ==
LOC: ER 22:16
DX: K72.10 Chronic hepatic failure without coma (principal); I50.33 Acute on chronic diastolic (congestive) heart failure; R60.1 Generalized edema
CPT/HCPCS: 36415; 71250; 74176; 76942; 80053; 81001; 82140; 83690; 83880; 85025; 85610; 85730; 96374; 96375; 99285; J2270; J2405

== ENCOUNTER 2020-07-21 16:11 | Emergency (ER) | payer MEDICAID ==
[~2020-07-21] VITALS: Ht 177.8 cm; Wt 77.1 kg
[~2020-07-21 16:11] MED LIST changes: +SPIR25TA PO; -SPIR25TA88 PO
[2020-07-21 17:02] LABS: Basophils # (auto) 0.1 10 ^3/uL (0-0.2); Eosinophils # (auto) 0 10 ^3/uL (0-0.8); Eosinophils % (auto) 0.5 % (0.0-7.0); Hematocrit 45.4 % (41.0-53.0); Hemoglobin 15.2 g/dL (13.5-17.5); Lymphocytes # (auto) 0.7 10 ^3/uL (0.4-5.4); Lymphocytes % (auto) 8.4 % (10.0-50.0); Mean Corpuscular Hemoglobin 31.9 pg (28.0-32.0); Mean Corpuscular Hgb Conc. 33.5 g/dL (32.0-36.0); Mean Corpuscular Volume 95.3 fL (80.0-100.0); Monocytes # (auto) 0.8 10 ^3/uL (0-1.3); Monocytes % (auto) 8.9 % (0.0-12.0); Neutrophils # (auto) 7.2 10 ^3/uL (1.6-8.6); Neutrophils % (auto) 81.2 % (37.0-80.0); Nucleated Red Blood Cells % 0.1 %; Platelet Count (auto) 227 10^3/uL (140-450); Red Blood Cells 4.77 10^6/uL (4.5-5.90); Red Cell Distribution Width 17.4 % (11.8-14.3); White Blood Cell 8.9 10^3/uL (4.4-10.8)
[2020-07-21 18:14] LABS: Albumin 2.3 g/dL (3.4-5.0); BUN/Creatinine Ratio 22.6; Calcium 8.4 mg/dL (8.5-10.1); Magnesium 2.3 mg/dL (1.6-2.6); Potassium 4.3 mmol/L (3.5-5.1)
[2020-07-21 18:19] LABS: Bilirubin, Total 4.3 mg/dL (0.2-1.0); Total Protein 7.2 g/dL (6.4-8.2)
[2020-07-21 18:22] LABS: INR 1.69 (0.9-1.15); Partial Thromboplastin Time 31.5 sec (23.0-31.2)
[2020-07-21 20:00] VITALS: BP 119/87
[2020-07-21] MEDS ORDERED: FUROSEMIDE 40 MG/4 ML VIAL IV ONE (20:30)
[2020-07-21] MEDS ORDERED: AZITHROMYCIN 500MG/ 250ML 250 ML IV ONE (20:30)
== END 2020-07-21 21:28 | disposition left against medical advice (07) ==
LOC: ER 16:11 → EDBD 16:11 → ER 21:28
DX: J18.9 Pneumonia, unspecified organism (principal); I13.0 Hypertensive heart and chronic kidney disease with heart failure and stage 1 through stage 4 chronic kidney disease, or unspecified chronic kidney disease; I50.9 Heart failure, unspecified; N18.31 Chronic kidney disease, stage 3a; J44.9 Chronic obstructive pulmonary disease, unspecified; E78.5 Hyperlipidemia, unspecified; Z88.6 Allergy status to analgesic agent; Z20.822 Contact with and (suspected) exposure to COVID-19
CPT/HCPCS: 36415; 71045; 80053; 83735; 83880; 84484; 85025; 85610; 85730; 93970

== ENCOUNTER 2021-02-19 21:25 | Emergency (ER) | payer MEDICAID ==
[~2021-02-19] VITALS: Ht 175.3 cm; Wt 63.5 kg
[2021-02-19 22:45] LABS: Basophils # (auto) 0.1 10 ^3/uL (0-0.2); Basophils % (auto) 1.1 % (0.0-2.0); Eosinophils # (auto) 0 10 ^3/uL (0-0.8); Eosinophils % (auto) 0.1 % (0.0-7.0); Hematocrit 47.1 % (41.0-53.0); Hemoglobin 15.5 g/dL (13.5-17.5); Lymphocytes # (auto) 0.7 10 ^3/uL (0.4-5.4); Lymphocytes % (auto) 6.6 % (10.0-50.0); Mean Corpuscular Hemoglobin 30.4 pg (28.0-32.0); Mean Corpuscular Hgb Conc. 32.8 g/dL (32.0-36.0); Mean Corpuscular Volume 92.5 fL (80.0-100.0); Monocytes # (auto) 1.3 10 ^3/uL (0-1.3); Monocytes % (auto) 13.6 % (0.0-12.0); Neutrophils # (auto) 7.8 10 ^3/uL (1.6-8.6); Neutrophils % (auto) 78.6 % (37.0-80.0); Nucleated Red Blood Cells % 0.1 %; Red Cell Distribution Width 14.9 % (11.8-14.3); White Blood Cell 9.9 10^3/uL (4.4-10.8)
[2021-02-19 23:00] LABS: INR 1.92 (0.9-1.15); Partial Thromboplastin Time 29.6 sec (23.6-33.0)
[2021-02-19 23:04] LABS: Albumin 2.4 g/dL (3.4-5.0); BUN/Creatinine Ratio 26.4; Calcium 8.7 mg/dL (8.5-10.1); Magnesium 2.9 mg/dL (1.6-2.6); Potassium 3.7 mmol/L (3.5-5.1)
[2021-02-19 23:09] LABS: Bilirubin, Total 6.1 mg/dL (0.2-1.0); Total Protein 7.2 g/dL (6.4-8.2)
[2021-02-19 23:40] LABS: Urine Bacteria FEW /hpf (None Seen); Urine Blood TRACE /uL (Negative); Urine Hyaline Cast MOD /lpf (0 - 2); Urine Mucus FEW (None Seen); Urine Specific Gravity 1.015 (1.001-1.035); Urine WBC 3 /hpf (0 - 3)
[2021-02-20 05:21] VITALS: BP 105/72
== END 2021-02-20 06:32 | disposition left against medical advice (07) ==
LOC: ER 21:25
DX: N17.9 Acute kidney failure, unspecified (principal); E80.6 Other disorders of bilirubin metabolism; K70.31 Alcoholic cirrhosis of liver with ascites; K72.90 Hepatic failure, unspecified without coma; I11.0 Hypertensive heart disease with heart failure; I50.9 Heart failure, unspecified; E78.5 Hyperlipidemia, unspecified; J44.9 Chronic obstructive pulmonary disease, unspecified; Z53.29 Procedure and treatment not carried out because of patient's decision for other reasons; Z88.6 Allergy status to analgesic agent; Z79.899 Other long term (current) drug therapy; Z87.891 Personal history of nicotine dependence; Z20.822 Contact with and (suspected) exposure to COVID-19
CPT/HCPCS: 36415; 71045; 74176; 80053; 81001; 82140; 82150; 82962; 83690; 83735; 83880; 84484; 85025; 85610; 85730; 87426; 93005